=== PATIENT | female | born 2000 | race African-American/Black ===

== ENCOUNTER 2024-12-19 17:01 | Emergency (ER) | payer OTHER ==
[2024-12-19 17:07] VITALS: BP 105/62; PULSE 78; RESP 20; TEMP 98.1; BMI 36.0
[2024-12-19] MEDS ORDERED: KETOROLAC TROMETHAMINE 30 MG/1 ML VIAL ONE (18:26)
== END 2024-12-19 18:34 | disposition home or self-care (01) ==
LOC: JER 17:01 → JERFT 17:01
DX: M54.6 Pain in thoracic spine (principal); V49.40XA Driver injured in collision with unspecified motor vehicles in traffic accident, initial encounter; Y92.410 Unspecified street and highway as the place of occurrence of the external cause
CPT/HCPCS: 99283-25